=== PATIENT | female | born 1955 | race Asian ===

== ENCOUNTER 2019-12-05 11:31 | Emergency (ER) | payer BC ==
[~2019-12-05] VITALS: Ht 152.4 cm; Wt 56.2 kg
[2019-12-05 11:47] VITALS: BP 128/69; Ht 152.4 cm; Wt 56.2 kg
== END 2019-12-05 12:26 | disposition home or self-care (01) ==
LOC: ED 11:31
DX: J02.9 Acute pharyngitis, unspecified (principal); R50.9 Fever, unspecified; R05 Cough